=== PATIENT | male | born 1985 | race Caucasian/White ===

== ENCOUNTER 2017-06-22 17:58 | Emergency (ER) | payer BC, OTHER ==
[~2017-06-22] VITALS: Ht 180.3 cm; Wt 65.4 kg
[2017-06-22 18:22] VITALS: BP 130/72; PULSE 92; RESP 16; TEMP 98.4; O2SAT 98
--- NOTE | 2017-06-22 18:36 | PD ---
HPI Chief Complaint: Laceration/Skin Injury Time Seen by Provider: 18:25 Travel History International Travel<30 days: No Contact w/Intl Traveler<30days: No Traveled to known affect area: No History of Present Illness HPI 32-year-old male here with laceration distal left fourth finger. Painful, throbbing, worse with palpation. He cut it with a fillet knife prior to arrival. Denies range of motion, numbness or tingling. Last tetanus vaccination unknown. No other complaints. [facility] Social History Alcohol Use: No Tobacco Use: Yes Allergies-Medications (Allergen,Severity, Reaction): Coded Allergies: No Known Allergies (Unverified , 06/22/17) Review of Systems Musculoskeletal: Positive: Pain Skin: Positive Other (laceration, pain) Physical Exam Narrative GENERAL: Well-nourished male in no acute distress SKIN: Warm and dry. 1 cm laceration fingerpad left fourth finger. CARDIOVASCULAR: Regular rate and rhythm. No murmur appreciated. RESPIRATORY: No accessory muscle use. Clear to auscultation. Breath sounds equal bilaterally. MUSCULOSKELETAL: No obvious deformities. Skin as noted above. Full range of motion, full sensation, capillary refill less than 2 seconds Data Data Last Documented VS Vital Signs Date Time Temp Pulse Resp B/P (MAP) Pulse Ox O2 Delivery O2 Flow Rate FiO2 06/22/17 18:22 98.4 92 16 130/72 (91) 98 Orders Orders Tetanus/Diphtheria Tox Adult (Tetanus/Di (06/22/17 18:45) Lidocaine 1% Inj (50 Ml) (Xylocaine 1% I (06/22/17 18:45) MDM Medical Decision Making Medical Screen Exam Complete: Yes Emergency Medical Condition: Yes Medical Record Reviewed: Yes Differential Diagnosis Finger laceration, tissue avulsion, puncture wound Narrative Course The laceration will be repaired with sutures, he verbally consents. Tetanus status updated. Procedures Procedure Narrative LACERATION LOCATION: Left fourth finger LENGTH: 1 cm NUMBER OF STITCHES/GILBERTO 5 REPAIR: The area of the laceration was prepped with Betadine and sterilely draped. The laceration was infiltrated with 1% lidocaine digital block. The wound was copiously irrigated and explored without evidence of foreign body, tendon injury or neurovascular injury. The wound was closed using 5-0 prolene simple interrupted. This was a single layer repair. A sterile dressing was applied. The patient was advised to keep the dressing clean and dry. Patient tolerated the procedure well. Diagnosis Primary Impression: Finger laceration Qualified Codes: S61.215A - Laceration without foreign body of left ring finger without damage to nail, initial encounter Additional Instructions: Wash daily with soap and water and apply antibiotic cream and clean bandages daily. Return in 10-14 days for suture removal. Med/Other Pt SpecificInfo: Wound Care Disposition: 01 DISCHARGE HOME Condition: Stable Tushar Sanabria Jun 22, 2017 18:36
[2017-06-22] MEDS ORDERED: TETANUS/DIPHTHERIA TOXOID ADULT 0.5 ML VIAL IM ONE (18:45)
[2017-06-22] MEDS ORDERED: LIDOCAINE HCL 1% 50 ML VIAL INFIL ONE (18:45)
== END 2017-06-22 19:13 | disposition home or self-care (01) ==
LOC: PHEFT 17:58
DX: S61.215A Laceration without foreign body of left ring finger without damage to nail, initial encounter (principal); W26.0XXA Contact with knife, initial encounter; Z23 Encounter for immunization; Z72.0 Tobacco use
CPT/HCPCS: 12001; 90471; 90714